=== PATIENT | female | born 1950 | race Caucasian/White ===

== ENCOUNTER 2019-12-04 10:39 | Outpatient (CLI) | payer MEDICARE, BC, SELFPAY ==
--- NOTE | ~2019-12-04 | MM_ITS ---
EXAMINATION: MM screening wendy BI w [facility] HISTORY: Screening mammogram TECHNIQUE: Craniocaudal and mediolateral oblique 3-D tomosynthesis images were obtained and synthetic 2-D images were generated. CAD analysis was submitted and interpreted. COMPARISON: 07/27/2018, 06/21/2017, 04/28/2016 bilateral digital screening mammogram examinations BREAST PARENCHYMAL COMPOSITION: There are scattered areas of fibroglandular density. FINDINGS: There is no evidence of suspicious mass, calcification, or architectural distortion to sugg est malignancy in either breast. There has been no suspicious interval change. IMPRESSION: 1. No mammographic evidence of malignancy. 2. Recommend routine screening mammography in one year. BI-RADS Category 1: Negative Reviewed, dictated and finalized at location A.
== END 2019-12-04 10:40 | disposition home or self-care (01) ==
LOC: ANHIMG 10:46
PROVIDERS: PCP Family Medicine Adolescent Medicine; Visit Provider Family Medicine Adolescent Medicine
DX: Z12.31 Encounter for screening mammogram for malignant neoplasm of breast (principal)
CPT/HCPCS: 77063; 77067

== ENCOUNTER → 2020-12-25 09:49 | Outpatient (CLI) | payer MEDICARE, BC, SELFPAY ==
--- NOTE | ~2020-12-25 | MM_ITS ---
EXAMINATION: MM screening wendy BI w [facility] HISTORY: Screening mammogram TECHNIQUE: Craniocaudal and mediolateral oblique 3-D tomosynthesis images were obtained and synthetic 2-D images were generated. CAD analysis was submitted and interpreted. COMPARISON: 12/04/2019, 07/27/2018, 06/21/2017 bilateral digital screening mammogram examinations BREAST PARENCHYMAL COMPOSITION: There are scattered areas of fibroglandular density. FINDINGS: There is no evidence of suspicious mass, calcification, or architectural distortion to sugg est malignancy in either breast. There has been no suspicious interval change. IMPRESSION: 1. No mammographic evidence of malignancy. 2. Recommend routine screening mammography in one year. BI-RADS Category 1: Negative Reviewed, dictated and finalized at location A.
== END ==
PROVIDERS: PCP Family Medicine Adolescent Medicine; Visit Provider Family Medicine Adolescent Medicine
DX: Z12.31 Encounter for screening mammogram for malignant neoplasm of breast (principal)
CPT/HCPCS: 77063; 77067

== ENCOUNTER → 2021-12-31 11:46 | Outpatient (CLI) | payer MEDICARE, OTHER, SELFPAY ==
--- NOTE | ~2021-12-31 | MM_ITS ---
EXAMINATION: MM screening wendy BI w [facility] HISTORY: Screening mammogram TECHNIQUE: Craniocaudal and mediolateral oblique 3-D tomosynthesis images were obtained and synthetic 2-D images were generated. CAD analysis was submitted and interpreted. COMPARISON: 12/25/2020, 12/04/2019, 07/27/2018 bilateral screening mammogram examinations BREAST PARENCHYMAL COMPOSITION: There are scattered areas of fibroglandular density. FINDINGS: There is no evidence of suspicious mass, calcification, or architectural distortion to sugg est malignancy in either breast. There has been no suspicious interval change. IMPRESSION: 1. No mammographic evidence of malignancy. 2. Recommend routine screening mammography in one year. BI-RADS Category 1: Negative Reviewed, dictated and finalized at location A.
== END ==
PROVIDERS: PCP Family Medicine Adolescent Medicine; Visit Provider Family Medicine Adolescent Medicine
DX: Z12.31 Encounter for screening mammogram for malignant neoplasm of breast (principal)
CPT/HCPCS: 77063; 77067

== ENCOUNTER → 2022-08-11 16:01 | Outpatient (CLI) | payer MEDICARE, OTHER, SELFPAY ==
--- NOTE | ~2022-08-11 | XR_ITS ---
EXAM: XR finger 3rd RT min 2V DATE: 08/11/2022 17:13 HISTORY: Unspecified osteoarthritis, unspecified site . COMPARISON: None available. FINDINGS: Decreased mineralization. No fracture or dislocation. No lytic or blastic lesion. Joint sp jaime narrowing and osteophytosis in the interphalangeal joints of the third finger, moderate in the DI P joints. Typical osteoarthritic changes also noted in the interphalangeal joints of the fourth digit , trapeziometacarpal joint, and triscaphe joint. No erosion or periosteal change. Soft tissues within normal limits. 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 Reviewed, dictated and finalized at location K. IMPRESSION: Polyarticular osteoarthritis, moderate in the DIP joint of the thir d digit.
== END ==
PROVIDERS: PCP Family Medicine Adolescent Medicine; Visit Provider Family Medicine Adolescent Medicine
DX: M19.041 Primary osteoarthritis, right hand (principal)
CPT/HCPCS: 73140

== ENCOUNTER → 2023-03-24 12:14 | Outpatient (CLI) | payer MEDICARE, OTHER, SELFPAY ==
--- NOTE | ~2023-03-24 | MM_ITS ---
EXAMINATION: MM screening [facility] BI w [facility] HISTORY: Screening mammogram TECHNIQUE: Craniocaudal and mediolateral oblique 3-D tomosynthesis images were obtained and synthetic 2-D images were generated. CAD analysis was submitted and interpreted. COMPARISON: 12/31/2021, 12/25/2020, 12/04/2019 BREAST PARENCHYMAL COMPOSITION: There are scattered areas of fibroglandular density. FINDINGS: No suspicious mass, calcification, or architectural distortion are identified in either aurelia ast to suggest malignancy. There has been no suspicious interval change. IMPRESSION: 1. No mammographic evidence of malignancy. 2. Recommend routine screening mammography in one year. BI-RADS Category 1: Negative Reviewed, dictated and finalized at location A. 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
== END ==
PROVIDERS: PCP Family Medicine Adolescent Medicine; Visit Provider Family Medicine Adolescent Medicine
DX: Z12.31 Encounter for screening mammogram for malignant neoplasm of breast (principal)
CPT/HCPCS: 77063; 77067

== ENCOUNTER 2023-08-02 00:21 | Day surgery (SDC) | payer MEDICARE, OTHER, SELFPAY ==
[2023-07-19 12:15] VITALS: BMI 19.8
[2023-08-02 08:44] VITALS: BP 154/75; PULSE 89; RESP 18; TEMP 36.2; O2SAT 100
[2023-08-02] MEDS: LACTATED RINGERS 1,000 ML 150 ML IV CONT (08:52)
--- NOTE | 2023-08-02 09:54 | WPDANESEPPF ---
Anes - Initial Pre Proc Eval Procedure: Operation Date: 08/02/23 10:00 Proposed Procedures p Colonoscopy - Matthew Artis MD Date/Time: 08/02/23 09:54 Surgeon: Matthew Artis MD Pre Op Diagnosis: Family hx of malignant neoplasm of digestive organ Patient Data Age: 73 Gender: F Height: 1.73 m Weight: 58 kg Last Vital Signs Temp 97.1 F L 08/02/23 08:44 Pulse 89 08/02/23 08:44 Resp 18 08/02/23 08:44 BP 154/75 H 08/02/23 08:44 Pulse Ox 100 08/02/23 08:44 O2 Del Method Room Air 08/02/23 08:44 Allergies Allergy/AdvReac Type Severity Reaction Status Date / Time Sulfa (Sulfonamide Allergy Mild RASH Verified 08/02/23 08:43 Antibiotics) Home Medications Medication Instructions Recorded Confirmed Type aspirin 81 mg tablet,delayed 81 mg PO DAILY 11/26/21 07/19/23 History release (Adult Aspirin Regimen) calcium carbonate (Calcium 600) 1,200 mg PO DAILY 11/26/21 07/19/23 History multivitamin with minerals-folic 1 tablet PO DAILY 11/26/21 07/19/23 History acid 0.4 mg tablet (One Daily Womens 50 Plus) carbamide peroxide 6.5 % ear drops 3 drp EACH EAR WEEKLY 08/10/22 07/19/23 History (Debrox) atorvastatin 40 mg tablet 40 mg PO DAILY #90 tabs 08/16/22 07/19/23 Rx alendronate 70 mg tablet 70 mg PO WEEKLY #13 tabs 08/18/22 07/19/23 Rx omeprazole 20 mg capsule,delayed 20 mg PO DAILY #90 caps 08/18/22 07/19/23 Rx release Patient hx anesthesia problems: none Family hx anesthesia problems: none Results Review: All pre-operative results and documents have been reviewed as part of the pre-operative evaluation. [facility] Surgical History Surgical History (Updated 11/26/21 @ 10:44 by Zaid Guzámn MA) H/O hernia repair Family History Family History (Updated 11/26/21 @ 10:47 by Zaid Guzmán MA) Father Colon cancer Carcinoma of colon Colon polyp Mother CAD (coronary artery disease) Grandparent Acute myocardial infarction Asthma Grandparent Acute myocardial infarction Sibling Heart disease Social History Social History (Updated 11/26/21 @ 10:48 by Zaid Guzmán MA) Smoking status: Never smoker Second hand tobacco smoke exposure: No Alcohol intake: never Alcohol use details: Rarely Substance use: never Substance use type: does not use Living arrangements: alone Occupation/Education: retired Gender identity (if verbalized by the patient): Female Spiritual care concerns: No Agree to blood products: Yes Anes - Eval Final PreProcedure Day of Procedure 08/02/23 09:54 Patient weight: normal Heart: regular rate and rhythm Lungs: clear to auscultation Airway: Mallampati scale class II Neurological: alert and oriented Last oral intake: >/= 8 hours ASA classification: II Emergent: no Anesthetic plan: proceed Anesthesia type and monitoring: general GIVS and standard monitoring Results Review: All pre-operative results and documents have been reviewed as part of the pre-operative evaluation. Informed Consent: The patient's anesthetic plan and its attendant risks and benefits were discussed with the patient/family/POA. Questions were solicited and answers provided to the satisfaction of the patient/family/POA.
--- NOTE | 2023-08-02 09:58 | PM.HPGS ---
History of Present Illness History of Present Illness Consent: Risks, benefits, and alternatives have been discussed and questions answered. Patient agrees to proceed with procedure. Chief complaint: Family hx of malignant neoplasm of digestive organ Narrative: Jerel Diaz is a 73 year old female with last colonoscopy 5 years ago, father had colon cancer Review of Systems Review of Systems: All systems reviewed & are unremarkable except as noted in HPI and below PMFSH Past Medical History Medical History (Updated 08/02/23 @ 09:59 by Matthew Artis MD) Family history of colon cancer in father Surgical History Surgical History (Updated 11/26/21 @ 10:44 by Zaid Guzmán MA) H/O hernia repair Family History Family History (Updated 11/26/21 @ 10:47 by Zaid Guzmán MA) Father Colon cancer Carcinoma of colon Colon polyp Mother CAD (coronary artery disease) Grandparent Acute myocardial infarction Asthma Grandparent Acute myocardial infarction Sibling Heart disease Social History Social History (Updated 11/26/21 @ 10:48 by Zaid Guzmán MA) Smoking status: Never smoker Second hand tobacco smoke exposure: No Alcohol intake: never Alcohol use details: Rarely Substance use: never Substance use type: does not use Living arrangements: alone Occupation/Education: retired Gender identity (if verbalized by the patient): Female Spiritual care concerns: No Agree to blood products: Yes Meds Home Medications and Allergies Home Medications Medication Instructions Recorded Confirmed Type aspirin 81 mg tablet,delayed 81 mg PO DAILY 11/26/21 07/19/23 History release (Adult Aspirin Regimen) calcium carbonate (Calcium 600) 1,200 mg PO DAILY 11/26/21 07/19/23 History multivitamin with minerals-folic 1 tablet PO DAILY 11/26/21 07/19/23 History acid 0.4 mg tablet (One Daily Womens 50 Plus) carbamide peroxide 6.5 % ear drops 3 drp EACH EAR WEEKLY 08/10/22 07/19/23 History (Debrox) atorvastatin 40 mg tablet 40 mg PO DAILY #90 tabs 08/16/22 07/19/23 Rx alendronate 70 mg tablet 70 mg PO WEEKLY #13 tabs 08/18/22 07/19/23 Rx omeprazole 20 mg capsule,delayed 20 mg PO DAILY #90 caps 08/18/22 07/19/23 Rx release Allergies Allergy/AdvReac Type Severity Reaction Status Date / Time Sulfa (Sulfonamide Allergy Mild RASH Verified 08/02/23 08:43 Antibiotics) Vital Signs Vital Signs - 24 hr 08/02/23 08:44 Temperature 97.1 F L Pulse Rate 89 Respiratory Rate 18 Blood Pressure 154/75 H Pulse Oximetry 100 Oxygen Delivery Room Air Exam Const: General: comfortable and no acute distress HENMT: Face/Nose/Sinus: Normal nares present Eyes: General: appearance normal, both eyes and all related structures Neck: Neck: no JVD Resp: Auscultation: clear to auscultation bilaterally Cardio: Rate: regular rate Rhythm: regular rhythm GI: Inspection: non-distended GI Palp: Yes Soft to palpation Skin: General skin exam: normal color Neuro: General: gait normal Speech: normal speech Extrem: General: normal to inspection Psych: Mental Status: mental status grossly normal Assessment and Plan Assessment and plan (1) Family history of colon cancer in father: Code(s): Z80.0 - Family history of malignant neoplasm of digestive organs Status: Acute Assessment and Plan: colonoscopy
[2023-08-02 10:18] VITALS: BP 110/64; PULSE 68; RESP 18; O2SAT 100
[2023-08-02 10:28] VITALS: BP 146/94; PULSE 76; RESP 18; O2SAT 96
[2023-08-02 10:35] VITALS: BP 156/88; PULSE 65; RESP 18; O2SAT 100
== END 2023-08-02 10:45 | disposition home or self-care (01) ==
PROVIDERS: PCP Family Medicine Adolescent Medicine; Visit Provider Internal Medicine Gastroenterology
PROC: 0DJD8ZZ Inspection of Lower Intestinal Tract, Via Natural or Artificial Opening Endoscopic (ICD-10-PCS; CPT 45378; principal; 2023-08-02 10:00)
DX: Z12.11 Encounter for screening for malignant neoplasm of colon (principal); K64.8 Other hemorrhoids; Z80.0 Family history of malignant neoplasm of digestive organs; Z79.82 Long term (current) use of aspirin
CPT/HCPCS: G0105; J2704; J7120

== ENCOUNTER 2023-08-10 10:50 | Outpatient (CLI) | payer MEDICARE, OTHER, SELFPAY ==
--- NOTE | ~2023-08-10 | DEXA_ITS ---
Bone Density Report Name: DINORA KELLEY Age: 73 Sex: Female Ethnicity: White Date of : 1950 Indication: osteopenia; monitoring treatment; height loss; postmenopausal Referring Provider: HOSSEIN ANGULO Study: Bone densitometry was performed. Exam Date: August 10, 2023 Accession number: [id number] Bone Density: Region BMD T-score Z-score Classification AP Spine (L1-L4) 1.000 -0.4 1.9 Normal Femoral Neck (Left) 0.536 -2.8 -0.8 Osteoporosis Total Hip (Left) 0.772 -1.4 0.3 Osteopenia Femoral Neck (Right) 0.542 -2.8 -0.8 Osteoporosis Total Hip (Right) 0.693 -2.0 -0.4 Osteopenia Total Hip Mean 0.733 -1.7 -0.1 Osteopenia World Health Organization criteria for BMD impression classify patients as: Normal (T-score at or above -1.0), Osteopenia (T-score between -1.0 and -2.5), or Osteoporosis (T-score at or below -2.5). 10-year Fracture Risk: FRAX not reported because: Some T-score for Spine Total or Hip Total or Femoral Neck at or below -2.5 Treated for osteoporosis Previous Exams: Region Exam Age BMD T-score BMD Change BMD Change Date g/cm2 vs Baseline vs Previous AP Spine(L1-L4) 08/10/2023 73 1.000 -0.4 -0.022 0.036* 06/21/2017 67 0.965 -0.7 -0.058* 0.010 10/05/2010 60 0.955 -0.8 -0.068* -0.068* 01/31/2009 58 1.022 -0.2 Total Hip(Left) 08/10/2023 73 0.772 -1.4 -0.019 0.013 06/21/2017 67 0.760 -1.5 -0.032* 0.050* 10/05/2010 60 0.709 -1.9 -0.082* -0.082* 01/31/2009 58 0.791 -1.2 Total Hip(Right) 08/10/2023 73 0.693 -2.0 -0.027 0.022 06/21/2017 67 0.671 -2.2 -0.049* -0.015 10/05/2010 60 0.686 -2.1 -0.034* -0.034* 01/31/2009 58 0.719 -1.8 *Denotes significance at 95% confidence level, LSC for AP Spine = 0.022 g/cm2, LSC for Total Hip = 0.027 g/cm2 Clinical Information Provided by Patient: Is being treated for osteoporosis Has used the following medications: Fosamax (i.e. alendronate), Calcium, vitamin D included in calcium Patient maximum height was 68 Menopause Age: 55 Drinks caffeinated beverages Onset of menses at age 14 Number of children 1 Impression: The patient has osteoporosis, based on the Left Femoral Neck T-score. No significant bone loss was observed. Discussion: PATIENT UNDER TREATMENT WITH NO SIGNIFICANT BMD LOSS SINCE
== END 2023-08-10 10:51 ==
PROVIDERS: PCP Family Medicine Adolescent Medicine; Visit Provider Family Medicine Adolescent Medicine
DX: M81.0 Age-related osteoporosis without current pathological fracture (principal); M85.852 Other specified disorders of bone density and structure, left thigh; M85.851 Other specified disorders of bone density and structure, right thigh
CPT/HCPCS: 77080

== ENCOUNTER 2024-03-26 11:55 | Outpatient (CLI) | payer MEDICARE, SELFPAY ==
--- NOTE | ~2024-03-26 | MM_ITS ---
EXAMINATION: MM screening wendy BI w [facility] HISTORY: Screening TECHNIQUE: Craniocaudal and mediolateral oblique 3-D tomosynthesis images were obtained and synthetic 2-D images were generated. CAD analysis was submitted and interpreted. COMPARISON: Comparison to multiple prior studies sequentially, with oldest reviewed study dated 09/2017. BREAST PARENCHYMAL COMPOSITION: Not dense: There are scattered areas of fibroglandular density. FINDINGS: There is no evidence of suspicious mass, calcification, or architectural distortion to sugg est malignancy in either breast. There has been no suspicious interval change. IMPRESSION: 1. No mammographic evidence of malignancy. 2. Recommend routine screening mammography in one year. BI-RADS Category 1: Negative Reviewed, dictated and finalized at location B. 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
== END 2024-03-26 11:56 | disposition home or self-care (01) ==
LOC: MICIMG 11:58
PROVIDERS: PCP Family Medicine Adolescent Medicine; Visit Provider Family Medicine Adolescent Medicine
DX: Z12.31 Encounter for screening mammogram for malignant neoplasm of breast (principal)
CPT/HCPCS: 77063; 77067

== ENCOUNTER 2024-08-02 15:04 | Emergency (ER) | payer MEDICARE, SELFPAY ==
[2024-08-02 15:04] VITALS: BP 142/93; PULSE 104; RESP 17; TEMP 36.8; O2SAT 97
--- NOTE | 2024-08-02 15:18 | ED_ITS ---
HPI - Wound/Laceration General Chief Complaint: Wound/Laceration Stated Complaint: leg laceration Time Seen by Provider: 08/02/24 15:14 Source: patient Mode of arrival: ambulatory Limitations: no limitations History of Present Illness HPI narrative: this is a 74-year-old female with history of hyperlipidemia presents after she had a fall when she tripped on a patch and fell into [place] area causing an avulsion injury to the anterior means of her left leg no other injuries noted has good range of motion in her leg with no numbness or tingling. Onset (ago): hour(s) Location: other Extremity Location: Left: lower leg ( avulsion injury) Place: outdoors Context: accidental Related Data Home Medications ?Medication ?Instructions ?Recorded ?Confirmed ?Last Taken ?Type aspirin 81 mg tablet,delayed 81 mg PO DAILY 11/26/21 12/27/23 Unknown History release (Adult Aspirin Regimen) calcium carbonate (Calcium 600) 1,200 mg PO DAILY 11/26/21 12/27/23 Unknown History multivitamin with minerals-folic 1 tablet PO DAILY 11/26/21 12/27/23 Unknown History acid 0.4 mg tablet (One Daily Womens 50 Plus) carbamide peroxide 6.5 % ear drops 3 drp EACH EAR WEEKLY 08/10/22 12/27/23 Unknown History (Debrox) Allergies Allergy/AdvReac Type Severity Reaction Status Date / Time Sulfa (Sulfonamide Allergy Mild RASH Verified 08/02/24 15:06 Antibiotics) Review of Systems Review of Systems: All systems reviewed & are unremarkable except as noted in HPI and below PMFSH Past Medical History Medical History Family history of colon cancer in father Surgical History Surgical History H/O hernia repair Family History Family History Father Colon cancer Carcinoma of colon Colon polyp Mother CAD (coronary artery disease) Grandparent Acute myocardial infarction Asthma Grandparent Acute myocardial infarction Sibling Heart disease Social History Social History Smoking status: Never smoker Second hand tobacco smoke exposure: No Alcohol intake: never Alcohol use details: Rarely Substance use: never Substance use type: does not use Living arrangements: alone Occupation/Education: retired Gender identity (if verbalized by the patient): Female Spiritual care concerns: No Agree to blood products: Yes Exam Const: General: healthy appearing and no acute distress Nutritional Appearance: well nourished Orientation/consciousness: patient oriented x3 Limitations: no limitations Resp: Effort & Inspection: normal respiratory effort Auscultation: clear to auscultation bilaterally Cardio: Rate: regular rate Rhythm: regular rhythm GI: GI Palp: Yes Soft to palpation Auscultation: normal bowel sounds Skin: Wounds: wounds noted Neuro: General: patient oriented x3 Cranial nerves: Yes Nystagmus not present Extrem: General: normal to inspection, no clubbing, cyanosis or edema and no pedal edema Course Course Emergency Course: Dermabond placed on the avulsion injury to her left anterior means and patient was updated with her tetanus. Vital Signs Vital signs: Vital Signs Temperature 36.8 C 08/02/24 15:04 Pulse Rate 104 H 08/02/24 15:04 Respiratory Rate 17 08/02/24 15:04 Blood Pressure 142/93 H 08/02/24 15:04 Pulse Oximetry 97 08/02/24 15:04 Oxygen Delivery Room Air 08/02/24 15:04 Temperature 36.8 C 08/02/24 15:04 Pulse Rate 104 H 08/02/24 15:04 Respiratory Rate 17 08/02/24 15:04 Blood Pressure 142/93 H 08/02/24 15:04 Pulse Oximetry 97 08/02/24 15:04 Oxygen Delivery Room Air 08/02/24 15:04 Procedures Laceration Laceration 1: Date: 08/02/24 Time: 15:21 Site: lower extremity Side (If applicable): left Size (cm): 3 Description: irregular ( Avulsion of the scan) Pre-repair: wound explored and irrigated ====== Skin Level ====== Skin layer closed with: dermabond ====== Subcutaneous Layer ====== ====== Muscle Layer ====== ====== Tendon Layer ====== Critical Care Time Critical Care Time Critical Care Time: No Discharge Plan Discharge Clinical Impression: Avulsion of skin Patient Disposition: Home Condition: Stable Instructions: Antibiotic Form, Skin Avulsion (ED), Skin Adhesive Care (ED) Additional Instructions: advised to follow with primary care physician if symptoms persist or worsen. Patient Language: Latvian Prescriptions: No Action calcium carbonate [Calcium 600] 600 mg calcium (1,500 mg) tablet 1,200 mg PO DAILY multivit with min-folic acid [One Daily Womens 50 Plus] 0.4 mg tablet 1 tablet PO DAILY aspirin [Adult Aspirin Regimen] 81 mg tablet,delayed release (DR/EC) 81 mg PO DAILY Debrox 6.5 % drops 3 drp EACH EAR WEEKLY atorvastatin 40 mg tablet 40 mg PO DAILY Qty: 90 3RF omeprazole 20 mg capsule,delayed release(DR/EC) 20 mg PO DAILY Qty: 90 3RF Follow-up/Referrals: Ricky George MD [Primary Care Provider] - Time of Disposition: 15:22
[2024-08-02] MEDS: TETANUS,DIPHTHERIA,AC PERTUSSIS ADULT 0.5 ML (ADACEL) IM (15:28)
[2024-08-02 15:48] VITALS: BP 129/73; PULSE 92; RESP 17; TEMP 36.8; O2SAT 95
== END 2024-08-02 15:48 | disposition home or self-care (01) ==
LOC: CHSED 15:26
PROVIDERS: Emergency Provider Emergency Medicine; PCP Family Medicine Adolescent Medicine
DX: S81.812A Laceration without foreign body, left lower leg, initial encounter (principal); E78.5 Hyperlipidemia, unspecified; Z23 Encounter for immunization; W01.0XXA Fall on same level from slipping, tripping and stumbling without subsequent striking against object, initial encounter
CPT/HCPCS: 12002; 90471; 90715; 99282

== ENCOUNTER 2025-03-28 10:43 | Outpatient (CLI) | payer MEDICARE, SELFPAY ==
--- NOTE | ~2025-03-28 | MM_ITS ---
EXAMINATION: MM screening wendy BI w [facility] HISTORY: Screening. TECHNIQUE: Craniocaudal and mediolateral oblique 3-D tomosynthesis images were obtained and synthetic 2-D images were generated. CAD analysis was submitted and interpreted. COMPARISON: 2023, 2022, and 2021. BREAST PARENCHYMAL COMPOSITION: Not Dense: There are scattered areas of fibroglandular FINDINGS: No suspicious masses are seen. There are no suspicious calcifications. No unexplained architectural distortion is seen. There are no skin or nipple abnormalities identified. There is no adenopathy seen on the images submitted. IMPRESSION: No mammographic evidence to suggest malignancy is seen. The patient may return to screening mammography as per ACR guidelines. BI-RADS 1 - Negative. Reviewed, dictated and finalized at location C. 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
== END 2025-03-28 10:44 | disposition home or self-care (01) ==
LOC: MICIMG 10:45
PROVIDERS: PCP Family Medicine; Visit Provider Family Medicine Adolescent Medicine
DX: Z12.31 Encounter for screening mammogram for malignant neoplasm of breast (principal)
CPT/HCPCS: 77063; 77067